=== PATIENT | male | born 1950 | race Caucasian/White ===

== ENCOUNTER 2017-08-26 06:37 | Day surgery (SDC) | payer OTHER ==
[~2017-08-26] VITALS: Ht 180.3 cm; Wt 113.6 kg
[~2017-08-26 06:37] MED LIST: ATOR20TA PO; BUSP5TAB3 PO; LOSA50TA37 PO; METF10004 PO; [UNRECOGNIZED DRUG - CODE] TP
[2017-08-26] MEDS ORDERED: SODIUM CHLORIDE 0.9% 1000ML 1,000 ML IV ONE (07:15)
[2017-08-26 07:29] VITALS: BP 143/87
[2017-08-26] MEDS ORDERED: PROPOFOL 10 MG/ML 20ML VIAL IV ONE (09:06)
[2017-08-26 09:30] VITALS: BP 129/62
== END 2017-08-26 10:05 | disposition home or self-care (01) ==
LOC: DAH 06:37 → ENDO 06:37
PROVIDERS: ATTEND Internal Medicine Gastroenterology
DX: Z09 Encounter for follow-up examination after completed treatment for conditions other than malignant neoplasm (principal); D12.2 Benign neoplasm of ascending colon; D12.4 Benign neoplasm of descending colon; K57.30 Diverticulosis of large intestine without perforation or abscess without bleeding; I10 Essential (primary) hypertension; E11.9 Type 2 diabetes mellitus without complications; F32.9 Major depressive disorder, single episode, unspecified; M10.9 Gout, unspecified; K85.90 Acute pancreatitis without necrosis or infection, unspecified; Z98.890 Other specified postprocedural states; Z86.010 Personal history of colon polyps; Z79.899 Other long term (current) drug therapy; Z79.84 Long term (current) use of oral hypoglycemic drugs; Z88.8 Allergy status to other drugs, medicaments and biological substances
CPT/HCPCS: 45385; 45380; 82948 ×2; 88305; 93005; A4606; J2704; J7030

== ENCOUNTER 2019-05-06 10:25 | Emergency (ER) | payer OTHER ==
[~2019-05-06 10:25] MED LIST changes: -LOSA50TA37 PO; +LOSA50TA64 PO; +METF-446 PO; -METF10004 PO
== END 2019-05-06 11:58 | disposition home or self-care (01) ==
LOC: EDH 10:25
DX: M25.551 Pain in right hip (principal); E11.9 Type 2 diabetes mellitus without complications; Z87.891 Personal history of nicotine dependence
CPT/HCPCS: 73502

== ENCOUNTER → 2022-03-13 | Outpatient (CLI) | payer OTHER ==
[~2022-03-13] MED LIST changes: -ATOR20TA PO; -BUSP5TAB3 PO; +ESCI-8 PO; -LOSA50TA64 PO; -METF-446 PO; -[UNRECOGNIZED DRUG - CODE] TP
[2022-03-13 12:35] LABS: BASOPHILS % (AUTO) 0.5 % (0.0-5.0); EOSINOPHILS % (AUTO) 1.4 % (0.0-8.0); HEMATOCRIT 41.4 % (42-54); LYMPHOCYTES % (AUTO) 29.3 % (21.0-51.0); MEAN CORPUSCULAR HEMOGLOBIN 24.9 pg (27.0-33.0); MEAN CORPUSCULAR HGB CONC 30.4 g/dL (32.0-36.0); MEAN CORPUSCULAR VOLUME 81.7 fL (79-99); MONOCYTES % (AUTO) 7.7 % (3.0-13.0); NEUTROPHILS % (AUTO) 60.9 % (40.0-77.0); PLATELET COUNT (AUTO) 194 K/uL (130-400); RED BLOOD CELL COUNT(AUTO) 5.07 MIL/uL (4.50-6.20); RED CELL DISTRIBUTION WIDTH 16.7 % (11.0-15.5); WHITE BLOOD COUNT (AUTO) 6.4 K/uL (4.8-10.8)
[2022-03-13 12:47] LABS: CREATININE 0.9 mg/dL (0.5-1.5); POTASSIUM 4.4 mmol/L (3.5-5.1)
== END | disposition home or self-care (01) ==
LOC: LAB 08:09
PROVIDERS: ATTEND Student in an Organized Health Care Education/Training Program
DX: I48.91 Unspecified atrial fibrillation (principal)
CPT/HCPCS: 36415; 80048; 85025

== ENCOUNTER → 2022-03-31 | Outpatient (CLI) | payer OTHER | END | disposition home or self-care (01) | LOC: RAH 08:18 | PROVIDERS: ATTEND Internal Medicine | DX: R29.6 Repeated falls (principal); R26.81 Unsteadiness on feet | CPT/HCPCS: 70551 ==

== ENCOUNTER → 2022-05-28 | Outpatient (CLI) | payer OTHER ==
[~2022-05-28] MED LIST changes: +APIX5TAB PO; +ATOR20TA65 PO; +BUSP10TA3 PO; -ESCI-8 PO; +ESCI20TA38 PO; +METF-446 PO; +PANT40TA54 PO
== END | disposition home or self-care (01) ==
LOC: LAB 08:35
PROVIDERS: ATTEND Student in an Organized Health Care Education/Training Program
DX: I48.91 Unspecified atrial fibrillation (principal)
CPT/HCPCS: 36415; 85014; 85018

== ENCOUNTER 2022-06-22 13:13 | Observation (INO) | payer OTHER ==
[~2022-06-22] VITALS: Ht 180.3 cm; Wt 99.8 kg
[2022-06-22 16:49] LABS: BASOPHILS % (AUTO) 0.1 % (0.0-5.0); EOSINOPHILS % (AUTO) 0.9 % (0.0-8.0); HEMATOCRIT 43.5 % (42-54); LYMPHOCYTES % (AUTO) 25.3 % (21.0-51.0); MEAN CORPUSCULAR VOLUME 80.4 fL (79-99); MONOCYTES % (AUTO) 8.5 % (3.0-13.0); NEUTROPHILS % (AUTO) 64.8 % (40.0-77.0); PLATELET COUNT (AUTO) 127 K/uL (130-400); RED BLOOD CELL COUNT(AUTO) 5.41 MIL/uL (4.50-6.20); RED CELL DISTRIBUTION WIDTH 16.4 % (11.0-15.5); WHITE BLOOD COUNT (AUTO) 6.7 K/uL (4.8-10.8)
[2022-06-22 17:17] LABS: CREATININE 1.1 mg/dL (0.5-1.5); POTASSIUM 3.9 mmol/L (3.5-5.1)
[2022-06-22 17:21] LABS: APPEARANCE,URINE CLEAR (CLEAR); BILIRUBIN,URINE NEGATIVE (NEGATIVE); COLOR,URINE LIGHT-YELLOW (YELLOW); GLUCOSE, URINE (UA) NEGATIVE (NEGATIVE); KETONES,URINE NEGATIVE (NEGATIVE); LEUKOCYTE ESTERASE ,URINE NEGATIVE Leu/uL (NEGATIVE); NITRATE,URINE NEGATIVE (NEGATIVE); OCCULT BLOOD,URINE NEGATIVE (NEGATIVE); PH,URINE 5.5 (5.0-8.0); PROTEIN,URINE NEGATIVE (NEGATIVE); UROBILINOGEN,URINE 0.2 mg/dL (0.2-1.0)
[2022-06-22 17:22] LABS: ALBUMIN 3.9 g/dL (3.5-5.0); TOTAL PROTEIN, SERUM 6.8 g/dL (6.0-8.3)
[2022-06-22 17:24] LABS: MUCUS,URINE RARE LPF (None Seen); SQUAMOUS EPITHELIAL CELL,UR RARE /HPF (0-2); WBC,URINE 0-1 /HPF (0-1)
[2022-06-22] MEDS ORDERED: ONDANSETRON 4MG INJ IVP PRN (18:00)
[2022-06-22] MEDS ORDERED: ACETAMINOPHEN 325 MG TAB PO PRN (18:00)
[2022-06-22] MEDS ORDERED: APIX5TAB PO (18:06)
[2022-06-22] MEDS ORDERED: BUSP10TA3 PO (18:06)
[2022-06-22] MEDS ORDERED: ATOR10 PO (18:06)
[2022-06-22] MEDS ORDERED: FURO20TA4 PO (18:06)
[2022-06-22] MEDS ORDERED: PANT40TA54 PO (18:06)
[2022-06-22] MEDS ORDERED: SPIR25TA6 PO (18:06)
[2022-06-22] MEDS ORDERED: SERT-439 PO (18:06)
[2022-06-22] MEDS ORDERED: METF-446 PO (18:06)
[2022-06-22] MEDS ORDERED: SACU1TAB PO (18:06)
[2022-06-22] MEDS: INSULIN HUMULIN R 100 UNIT/ML 3ML SQ SCH (21:00)
[2022-06-23] MEDS: INSULIN HUMULIN R 100 UNIT/ML 3ML SQ SCH ×4 (05:22→19:52)
[2022-06-23 06:10] VITALS: BP 150/74
[2022-06-23 07:15] LABS: BASOPHILS % (AUTO) 0.3 % (0.0-5.0); EOSINOPHILS % (AUTO) 1.3 % (0.0-8.0); HEMATOCRIT 43.9 % (42-54); LYMPHOCYTES % (AUTO) 29.2 % (21.0-51.0); MEAN CORPUSCULAR HEMOGLOBIN 24.8 pg (27.0-33.0); MEAN CORPUSCULAR HGB CONC 31.2 g/dL (32.0-36.0); MEAN CORPUSCULAR VOLUME 79.4 fL (79-99); MONOCYTES % (AUTO) 8.8 % (3.0-13.0); NEUTROPHILS % (AUTO) 60.1 % (40.0-77.0); PLATELET COUNT (AUTO) 148 K/uL (130-400); RED BLOOD CELL COUNT(AUTO) 5.53 MIL/uL (4.50-6.20); RED CELL DISTRIBUTION WIDTH 16.5 % (11.0-15.5); WHITE BLOOD COUNT (AUTO) 6.7 K/uL (4.8-10.8)
[2022-06-23 07:38] LABS: CREATININE 0.9 mg/dL (0.5-1.5); MAGNESIUM 1.9 mg/dL (1.80-2.40); POTASSIUM 4.1 mmol/L (3.5-5.1)
[2022-06-23 08:00] VITALS: BP 117/69
[2022-06-23] MEDS: SACUBITRIL/VALSARTAN 1 EACH TABLET PO SCH ×2 (08:39→19:51)
[2022-06-23] MEDS: METFORMIN HCL 500 MG TABLET PO SCH ×2 (08:40→17:18)
[2022-06-23] MEDS: BUSPIRONE HCL 5 MG TABLET PO SCH ×2 (08:40→19:51)
[2022-06-23] MEDS: SPIRONOLACTONE 25 MG TAB PO SCH (08:40)
[2022-06-23] MEDS: FUROSEMIDE 20 MG TABLET PO SCH (08:40)
[2022-06-23] MEDS: SERTRALINE HCL 50 MG TABLET PO SCH (08:40)
[2022-06-23] MEDS: PANTOPRAZOLE 40 MG TAB DR PO SCH (08:40)
[2022-06-23] MEDS: APIXABAN 5 MG TABLET PO SCH ×2 (08:40→19:51)
[2022-06-23] MEDS ORDERED: NON-FORMULARY MEDICATION 1 EACH (Metformin HCl 1,000 MG) PO SCH (09:00)
[2022-06-23] MEDS ORDERED: METOPROLOL SUCCINATE 25 MG TAB.SR.24H PO SCH (11:00)
[2022-06-23 12:00] VITALS: BP 118/71
[2022-06-23 15:56] VITALS: BP 114/67
[2022-06-23 19:00] VITALS: BP 128/60
[2022-06-23] MEDS: ATORVASTATIN 10 MG TABLET PO SCH (19:51)
[2022-06-23 23:53] VITALS: BP 104/52
[2022-06-24 04:00] VITALS: BP 97/51
[2022-06-24] MEDS: INSULIN HUMULIN R 100 UNIT/ML 3ML SQ SCH ×4 (06:38→19:37)
[2022-06-24 08:00] VITALS: BP 106/64
[2022-06-24] MEDS: FUROSEMIDE 20 MG TABLET PO SCH (10:14)
[2022-06-24] MEDS: SERTRALINE HCL 50 MG TABLET PO SCH (10:14)
[2022-06-24] MEDS: SACUBITRIL/VALSARTAN 1 EACH TABLET PO SCH ×2 (10:14→19:38)
[2022-06-24] MEDS: METFORMIN HCL 500 MG TABLET PO SCH ×2 (10:14→17:24)
[2022-06-24] MEDS: PANTOPRAZOLE 40 MG TAB DR PO SCH (10:14)
[2022-06-24] MEDS: BUSPIRONE HCL 5 MG TABLET PO SCH ×2 (10:14→19:38)
[2022-06-24] MEDS: APIXABAN 5 MG TABLET PO SCH ×2 (10:14→19:39)
[2022-06-24] MEDS: METOPROLOL SUCCINATE 25 MG TAB.SR.24H PO SCH (10:15)
[2022-06-24] MEDS: SPIRONOLACTONE 25 MG TAB PO SCH (10:15)
[2022-06-24 11:18] LABS: HEMATOCRIT 46.4 % (42-54); MEAN CORPUSCULAR HGB CONC 30.8 g/dL (32.0-36.0); MEAN CORPUSCULAR VOLUME 81.1 fL (79-99); RED BLOOD CELL COUNT(AUTO) 5.72 MIL/uL (4.50-6.20); WHITE BLOOD COUNT (AUTO) 6.6 K/uL (4.8-10.8)
[2022-06-24 11:34] LABS: PHOSPHORUS 3.2 mg/dL (2.5-4.9); POTASSIUM 4.3 mmol/L (3.5-5.1)
[2022-06-24 12:00] VITALS: BP 121/61
[2022-06-24 16:00] VITALS: BP 114/67
[2022-06-24] MEDS: LACTULOSE 20 GM/30 ML UDCUP PO SCH ×2 (17:24→21:56)
[2022-06-24 19:00] VITALS: BP 121/68
[2022-06-24] MEDS: ATORVASTATIN 10 MG TABLET PO SCH (19:39)
[2022-06-25] VITALS: BP 96/53
[2022-06-25 04:00] VITALS: BP 102/59
[2022-06-25] MEDS: LACTULOSE 20 GM/30 ML UDCUP PO SCH ×3 (04:00→09:12)
[2022-06-25] MEDS: INSULIN HUMULIN R 100 UNIT/ML 3ML SQ SCH (05:42)
[2022-06-25 08:00] VITALS: BP 102/65
[2022-06-25] MEDS: METOPROLOL SUCCINATE 25 MG TAB.SR.24H PO SCH (08:36)
[2022-06-25] MEDS: PANTOPRAZOLE 40 MG TAB DR PO SCH (08:36)
[2022-06-25] MEDS: SACUBITRIL/VALSARTAN 1 EACH TABLET PO SCH (08:37)
[2022-06-25] MEDS: SERTRALINE HCL 50 MG TABLET PO SCH (08:37)
[2022-06-25] MEDS: SPIRONOLACTONE 25 MG TAB PO SCH (08:37)
[2022-06-25] MEDS: APIXABAN 5 MG TABLET PO SCH (08:37)
[2022-06-25] MEDS: FUROSEMIDE 20 MG TABLET PO SCH (08:37)
[2022-06-25] MEDS: BUSPIRONE HCL 5 MG TABLET PO SCH (08:37)
[2022-06-25] MEDS: METFORMIN HCL 500 MG TABLET PO SCH (08:38)
== END 2022-06-25 10:30 | disposition home or self-care (01) ==
LOC: EDH 13:13 → EDHIP 17:45 → 4AH 06-23 03:17
PROVIDERS: ADMIT Internal Medicine Infectious Disease; ATTEND Internal Medicine Infectious Disease
DX: I48.0 Paroxysmal atrial fibrillation (principal); I48.20 Chronic atrial fibrillation, unspecified; E11.9 Type 2 diabetes mellitus without complications; F41.9 Anxiety disorder, unspecified; E78.5 Hyperlipidemia, unspecified; I25.10 Atherosclerotic heart disease of native coronary artery without angina pectoris; E66.01 Morbid (severe) obesity due to excess calories; E78.00 Pure hypercholesterolemia, unspecified; R54 Age-related physical debility; I10 Essential (primary) hypertension; I21.3 ST elevation (STEMI) myocardial infarction of unspecified site; I27.20 Pulmonary hypertension, unspecified; I34.0 Nonrheumatic mitral (valve) insufficiency; Z79.899 Other long term (current) drug therapy; Z79.01 Long term (current) use of anticoagulants
CPT/HCPCS: 99285; 82550 ×3; 83874 ×3; 84484 ×4; 80053; 85025 ×2; 82948 ×10; 81001; 36415 ×3; 71045; 93005; 83735 ×2; 80048 ×2; 84100; 85027; G0378 ×64

== ENCOUNTER 2024-01-29 13:28 | Emergency (ER) | payer OTHER ==
[~2024-01-29] VITALS: Ht 180.3 cm; Wt 104.3 kg
[~2024-01-29 13:28] MED LIST changes: -ATOR20TA65 PO; -BUSP10TA3 PO; +BUSP15TA3 PO; +FISH OIL PO; +FURO20TA4 PO; +GLIM2TAB30 PO; +METO-408 PO; -PANT40TA54 PO
[2024-01-29 14:09] LABS: BASOPHILS # (AUTO) 0.03 K/uL (0.00-0.20); BASOPHILS % (AUTO) 0.3 % (0.0-5.0); EOSINOPHILS # (AUTO) 0.03 K/uL (0.00-0.70); EOSINOPHILS % (AUTO) 0.3 % (0.0-8.0); HEMATOCRIT 44.7 % (42-54); IMMATURE GRANULOCYTE ABSOLUTE 0.03 K/uL (0-1); LYMPHOCYTES # (AUTO) 1.3 K/uL (1.0-4.8); LYMPHOCYTES % (AUTO) 13.3 % (21.0-51.0); MEAN CORPUSCULAR HEMOGLOBIN 28.1 pg (27.0-33.0); MEAN CORPUSCULAR HGB CONC 32.2 g/dL (32.0-36.0); MEAN CORPUSCULAR VOLUME 87.1 fL (79-99); MONOCYTES # (AUTO) 0.8 K/uL (0.1-1.0); MONOCYTES % (AUTO) 7.9 % (3.0-13.0); NEUTROPHILS # (AUTO) 7.4 K/uL (1.8-7.7); NEUTROPHILS % (AUTO) 77.9 % (40.0-77.0); PLATELET COUNT (AUTO) 146 K/uL (130-400); RED BLOOD CELL COUNT(AUTO) 5.13 MIL/uL (4.50-6.20); RED CELL DISTRIBUTION WIDTH 13.7 % (11.0-15.5); WHITE BLOOD COUNT (AUTO) 9.6 K/uL (4.8-10.8)
[2024-01-29 14:19] LABS: CREATININE 1.1 mg/dL (0.5-1.3); POTASSIUM 3.7 mmol/L (3.5-5.1)
[2024-01-29 14:38] LABS: B-TYPE NATRIURETIC PEPTIDE 130 pg/mL (0-100)
[2024-01-29] MEDS: ketOROlac 30MG VIAL (30MG/ML) IVP ONE (15:50)
[2024-01-29 16:04] VITALS: BP 133/76; PULSE 85; RESP 17; TEMP 98.6; O2SAT 96
[2024-01-29] MEDS ORDERED: COLC0.6T73 PO (16:51)
[2024-01-29] MEDS: dexaMETHasone SOD PHOSPHATE 4 MG/ML 1ML VIAL IVP ONE (17:02)
== END 2024-01-29 17:08 | disposition home or self-care (01) ==
LOC: EDH 13:28
DX: S30.1XXA Contusion of abdominal wall, initial encounter (principal); M10.9 Gout, unspecified; E86.0 Dehydration; W18.39XA Other fall on same level, initial encounter; Y93.89 Activity, other specified; Y92.89 Other specified places as the place of occurrence of the external cause; Y99.8 Other external cause status; E11.9 Type 2 diabetes mellitus without complications; E78.00 Pure hypercholesterolemia, unspecified; I11.9 Hypertensive heart disease without heart failure; F41.9 Anxiety disorder, unspecified; I48.91 Unspecified atrial fibrillation; Z79.01 Long term (current) use of anticoagulants; Z79.84 Long term (current) use of oral hypoglycemic drugs; Z79.899 Other long term (current) drug therapy; Z98.890 Other specified postprocedural states
CPT/HCPCS: 99285; 96374; 71045; 96375; 84484; 84550; 80048; 83880; 85025; 36415; 73090; 73130; 93005; J1100; J1885